=== PATIENT | male | born 1965 | race Caucasian/White ===

== ENCOUNTER 2017-12-07 17:03 | Emergency (ER) | payer SELFPAY ==
--- NOTE | 2017-12-07 17:48 | ERNOTE ---
ER Male HPI Stated Complaint: URINARY PROBLEM ER Male: dysuria Time Seen by Provider: 12/07/17 17:24 Source: patient Exam Limitations: no limitations Immunizations: IMMUNIZATION HX Immunizations Up to Date Yes History of Influenza Vaccine Yes Hx Pneumococcal Vaccination No Allergies/Adverse Reactions: Allergies hydromorphone [Hydromorphone] Allergy (Mild, Verified 04/04/16 18:38) can only take 2mg not 4 mg Home Medications: HOME MEDICATIONS Phenazopyridine HCl [Pyridium] 100 mg PO TID #6 tab 12/07/17 [Last Taken Unknown ] - History of Present Illness Narrative: Patient presents with 3-4 months of suprapubic pain and dysuria. He states he' s been on a variety of antibiotics none of which helped and he has been referred to the urology clinic tomorrow in [place]. He comes in today with moderate to severe pain that is been ongoing once again for quite a period of time. Timing: Present: constant Quality: Present: moderate, severe Onset Location: Present: suprapubic Radiation: Present: right flank, left flank Activities at Onset: Present: none Prior Abdominal Problems: Present: similar symptoms - chronic for the past 3-4 months Modifying Factors - (Worsens): Present: urinating Associated Symptoms: Present: denies symptoms Prior Treatment: Present: recently seen, treated by physician Review of Systems - Review of Systems Constitutional: Present: See HPI EYE: Present: no symptoms reported ENT: Present: no symptoms reported Respiratory: Present: no symptoms reported Cardiology: Present: no symptoms reported Gastrointestinal/Abdominal: Present: no symptoms reported Genitourinary: Present: See HPI, dysuria Musculoskeletal: Present: no symptoms reported Skin: Present: no symptoms reported Neurological: Present: no symptoms reported Endocrine: Present: no symptoms reported Hematologic/Lymphatic: Present: no symptoms reported Psych: Present: no symptoms reported - Patient's Past Medical History Patient History - Medical: Anxiety, Chronic Pain, UTI'S Patient History - Cardiac/Respiratory: No pertinent hx Patient History - Cancer: Prostate Patient History - Surgical Procedures: No surgical history, ENT Patient History - Other: None - Social History Abuse History: No History of abuse Psych History: No pertinent hx Smoking Status: Current every day smoker Have you smoked in the past 12 months: Yes Alcohol Use: none Drug Use: other - Immunizations Immunizations Up to Date: Yes Hx Pneumococcal Vaccination: No History of Influenza Vaccine: Yes Physical Exam - Physical Exam General Appearance: Present: wd/wn, alert, moderate distress Head Exam: Present: normal inspection, no evidence of injury Eye Exam: Normal inspection: bilateral, PERRL: bilateral Ears, Nose, Throat: Present: normal ENT inspection, H, normal pharynx Neck: Present: normal inspection, nontender Respiratory: Present: no respiratory distress, normal breath sounds, no accessory muscle use, chest nontender, lungs clear Cardiovascular/Chest: Present: regular rate, rhythm, no murmur, normal peripheral pulses Gastrointestinal/Abdominal: Present: normal bowel sounds, nondistended, soft, no organomegaly, tenderness - suprapubic Rectal Exam: Present: deferred Back Exam: Present: normal inspection, normal range of motion Extremity Exam: Present: normal inspection, non-tender, no edema, normal range of motion Neurological Exam: Present: alert, oriented, normal mood/affect Skin Exam: Present: normal color, warm/dry Lymphatic Exam: Present: no adenopathy ED Progress - Results and Orders Patient's Lab Results:: I have reviewed the patient's lab results. - Vital Signs Patient's Vital Signs:: I have reviewed the patient's vital signs. Vital Signs: Vital Signs 12/07/17 17:18 Temperature 36.4 C L Pulse Rate 126 H Respiratory 18 Rate Blood Pressure 132/95 O2 Sat by Pulse 98 Oximetry - Progress/Reassessment Chief Complaint: Genitourinary Problem Plan - Plan Plan: Patient is going to go to [place] tomorrow to start an extensive urology workup there. He states that he has Bactrim waiting for him at the pharmacy and we will add Pyridium. Urine culture and sensitivity is pending. Departure Clinical Impression: UTI (urinary tract infection) Qualifiers: Urinary tract infection type: acute cystitis Hematuria presence: with hematuria Qualified Code(s): N30.01 - Acute cystitis with hematuria - Departure Disposition: Home self-care Condition: Good Instructions: Urinary Tract Infection, Adult, [id number] Referrals: MAN NIEVES PA-C [Primary Care Provider] - Prescriptions: Phenazopyridine HCl [Pyridium] 100 mg PO TID #6 tab
[2017-12-07 18:06] LABS: Urine Bilirubin Negative (NEGATIVE); Urine Blood 25 /ul (NEGATIVE); Urine Ketone Negative (NEGATIVE); Urine Nitrite Negative (NEGATIVE); Urine Protein Negative (NEGATIVE); Urine Urobilinogen Normal (NORMAL)
[2017-12-07 18:15] LABS: Urine Appearance Cloudy; Urine Bacteria 1+; Urine Color Yellow; Urine RBC 0-5 /hpf (0-5); Urine WBC >50 /hpf (0-5)
[2017-12-07] MEDS ORDERED: PHENAZOPYRIDINE HCL 100 MG TABLET PO ONE (18:26)
[2017-12-07] MEDS ORDERED: PHENAZOPYRIDINE HCL 100 MG TABLET ONE (18:28)
[2017-12-07] MEDS ORDERED: NITROFURANTOIN/NITROFURAN MAC 100 MG CAPSULE ONE (18:28)
[2017-12-07] MEDS ORDERED: NITROFURANTOIN/NITROFURAN MAC 100 MG CAPSULE PO SCH (18:30)
[2017-12-07] MEDS ORDERED: HYDROcodone/ACETAMINOPHEN 1 EACH TABLET ONE (18:36)
[2017-12-07] MEDS ORDERED: HYDROcodone/ACETAMINOPHEN 1 EACH TABLET PO ONE (18:37)
[2017-12-07 20:56] VITALS: BP 130/90
== END 2017-12-07 18:40 | disposition home or self-care (01) ==
LOC: ER 17:03
DX: N30.01 Acute cystitis with hematuria (principal); Z87.440 Personal history of urinary (tract) infections; Z85.46 Personal history of malignant neoplasm of prostate; F17.200 Nicotine dependence, unspecified, uncomplicated